=== PATIENT | female | born 1955 | race Native Hawaiian/Other Pacific Islander ===

== ENCOUNTER → 2016-08-18 | Outpatient (CLI) | payer BC, OTHER ==
[~2016-08-18] MED LIST: ADULT LOW DOSE81 MG; APAP500; CALCIUM OYSTER500 MG; IRON325; MULTIVITAMINS
== END ==
LOC: RAD 13:23
DX: Z12.31 Encounter for screening mammogram for malignant neoplasm of breast (principal)

== ENCOUNTER → 2016-09-17 | Outpatient (CLI) | payer BC, OTHER | LOC: CAT 09:12 | DX: R51 Headache (principal) ==

== ENCOUNTER → 2017-05-24 | Outpatient (CLI) | payer OTHER | LOC: CAT 10:44 | DX: Z13.6 Encounter for screening for cardiovascular disorders (principal) ==

== ENCOUNTER → 2017-09-06 | Outpatient (CLI) | payer BC | LOC: RAD 09:50 | DX: Z12.31 Encounter for screening mammogram for malignant neoplasm of breast (principal) ==

== ENCOUNTER → 2018-05-09 | Outpatient (CLI) | payer BC, OTHER | LOC: RAD 09:19 | DX: R59.0 Localized enlarged lymph nodes (principal) ==

== ENCOUNTER → 2018-06-27 | Outpatient (CLI) | payer BC, OTHER | LOC: ULTRA 08:51 | DX: K76.0 Fatty (change of) liver, not elsewhere classified (principal) ==

== ENCOUNTER → 2018-09-15 | Outpatient (CLI) | payer BC, OTHER | LOC: RAD 02:38 | DX: Z12.31 Encounter for screening mammogram for malignant neoplasm of breast (principal) ==